=== PATIENT | female | born 1950 | race Caucasian/White ===

== ENCOUNTER 2024-07-22 23:05 | Emergency (ER) | payer OTHER ==
--- NOTE | 2024-07-22 23:40 | EDPHYS ---
Physician Documentation [facility] Name: Juanita Mcallister Age: 74 yrs Sex: Female : 1950 Arrival Date: 07/22/2024 Time: 23:05 Bed IW1 Private MD: ED Physician Lito Dave HPI: 07/23 00:12 This 74 yrs old Female presents to ER via Ambulatory with complaints of Dizziness, Sore rt Throat, Difficulty Swallowing, High Blood Pressure. 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 Patient rt states that she had an acute episode of difficulty swallowing, difficulty breathing. States that this resolved spontaneously upon her arrival to the emergency department, ports a mild sore throat currently which she has had since having an endoscopy. She states that she feels better now, does not wish to have further diagnostic studies be performed in the emergency department. Symptoms are moderate in severity, no other aggravating alleviating factors.. Historical: - Allergies: 07/22 23:57 No Known Allergies; ha1 - Immunization history:: Adult Immunizations unknown. - Infectious Disease History:: Denies. - Social history:: Smoking status: unknown. - Family history:: not pertinent. ROS: 07/23 00:12 Constitutional: Negative for fever, chills, and weight loss, Cardiovascular: Negative rt for chest pain, palpitations, and edema, Abdomen/GI: Negative for abdominal pain, nausea, vomiting, diarrhea, and constipation, MS/Extremity: Negative for injury and deformity, Skin: Negative for injury, rash, and discoloration, ENT: Positive for Difficulty swallowing, sore throat, Respiratory: Positive for shortness of breath, Negative for cough, Exam: 00:12 Constitutional: This is a well developed, well nourished patient who is awake, alert, rt and in no acute distress. Head/Face: Normocephalic, atraumatic. Chest/axilla: Normal chest wall appearance and motion. Nontender with no deformity. No lesions are appreciated. Cardiovascular: Regular rate and rhythm with a normal S1 and S2. No gallops, murmurs, or rubs. Normal PMI, no JVD. No pulse deficits. Respiratory: Lungs have equal breath sounds bilaterally, clear to auscultation and percussion. No rales, rhonchi or wheezes noted. No increased work of breathing, no retractions or nasal flaring. Abdomen/GI: Soft, non-tender, with normal bowel sounds. No distension or tympany. No guarding or rebound. No evidence of tenderness throughout. Skin: Warm, dry with normal turgor. Normal color with no rashes, no lesions, and no evidence of cellulitis. MS/ Extremity: Pulses equal, no cyanosis. Neurovascular intact. Full, normal range of motion. Neuro: Awake and alert, GCS 15, oriented to person, place, time, and situation. Cranial nerves II-XII grossly intact. Motor strength 5/5 in all extremities. Sensory grossly intact. Cerebellar exam normal. Normal gait. 00:12 ENT: Few scattered petechiae on the uvula, no other posterior pharyngeal erythema, no edema. Vital Signs: 07/22 23:49 BP 156 / 84; Pulse 76; Resp 18; Temp 97.9; Pulse Ox 100% ; cg MDM: 23:18 Medical Screening Exam initiated rt 07/23 00:12 Differential diagnosis: Dysphagia, panic attack. Data reviewed: vital signs, nurses rt notes. Test considered but Not performed: Other Details Patient states that she feels much better now, back to baseline, does not wish to have diagnostic studies be performed and wishes to go home, believe this is reasonable at this time, vital signs are stable. Patient understands that she may return a time if she changes her mind or if she develops worsening symptoms. Care significantly affected by the following chronic conditions: Candidal esophagitis. Counseling: I had a detailed discussion with the patient and/or guardian regarding the historical points, exam findings, and any diagnostic results supporting the discharge/admit diagnosis, the presence of at least one elevated blood pressure reading (>120/80) during this emergency department visit, the need for outpatient follow up, to return to the emergency department if symptoms worsen or persist or if there are any questions or concerns that arise at home. Response to treatment: the patient's symptoms have resolved after treatment. Administered Medications: No medications were administered Disposition Summary: 07/22/24 23:39 Discharge Ordered Notes: Location: Home rt Problem: new rt Symptoms: have improved rt Condition: Stable rt Diagnosis - Dysphagia rt Followup: rt - With: Private Physician - When: 2 - 3 days - Reason: Discharge Instructions: - Discharge Summary Sheet rt - Dysphagia rt Forms: - Medication Reconciliation Form rt - Antibiotic Education rt - Prescription Opioid Use rt - Patient Portal Instructions rt - Leadership Thank You Letter rt Signatures: Vira Turner RN RN ha1 Lito Dave MD MD rt
--- NOTE | 2024-07-23 00:02 | ER ---
Nurse's Notes [facility] Name: Juanita Mcallister Age: 74 yrs Sex: Female : 1950 Arrival Date: 07/22/2024 Time: 23:05 Bed IW1 Private MD: Diagnosis: Dysphagia Presentation: 07/22 23:49 Chief complaint: Patient states: C/o of swallowing and breathing.Sore throat. cg Coronavirus screen: Vaccine status:. Ebola Screen: Patient negative for fever greater than or equal to 101.5 degrees Fahrenheit, and additional compatible Ebola Virus Disease symptoms. Initial Sepsis Screen: Does the patient meet any 2 criteria? No. Patient's initial sepsis screen is negative. Risk Assessment: Do you want to hurt yourself or someone else? Patient reports no desire to harm self or others. 23:49 Method Of Arrival: Ambulatory 23:49 Acuity: MAYRA 4 07/23 00:00 Initial Sepsis Screen: Does the patient have a suspected source of infection? No. ha1 Patient's initial sepsis screen is negative. 00:00 Onset of symptoms was July 23, 2024. [facility] Triage Assessment: 07/22 23:57 General: Appears comfortable, Behavior is calm, cooperative. Pain: Complains of pain in [facility] sore throat after endoscopy Pain does not radiate. Pain currently is 4 out of 10 on a pain scale. EENT: Oral mucosa is moist. Good dentition noted. Neuro: Level of Consciousness is awake, alert, obeys commands, Oriented to person, place, time, situation. Cardiovascular: Capillary refill < 3 seconds Patient's skin is warm and dry. Respiratory: Airway is patent Respiratory effort is even, unlabored, Respiratory pattern is regular, symmetrical. Respiratory: GI: Abdomen is round non-distended. : No signs and/or symptoms were reported regarding the genitourinary system. Musculoskeletal: Circulation, motion, and sensation intact. Range of motion: intact in all extremities. Historical: - Allergies: 23:57 No Known Allergies; ha1 - Immunization history:: Adult Immunizations unknown. - Infectious Disease History:: Denies. - Social history:: Smoking status: unknown. - Family history:: not pertinent. Screenin:59 [facility] ED Fall Risk Assessment (Adult) History of falling in the last 3 months, ha1 including since admission No falls in past 3 months (0 pts) Confusion or Disorientation No (0 pts) Intoxicated or Sedated No (0 pts) Impaired Gait No (0 pts) Mobility Assist Device Used No (0 pt) Altered Elimination No (0 pt) Score/Fall Risk Level 0 - 2 = Low Risk Oriented to surroundings, Maintained a safe environment, Educated pt \\T\\ family on fall prevention, incl call for assistance when getting out of bed. Abuse screen: Denies threats or abuse. Denies injuries from another. Nutritional screening: No deficits noted. Tuberculosis screening: No symptoms or risk factors identified. Assessment: 23:50 Reassessment: Patient and/or family updated on plan of care and expected duration. Pain ha1 level reassessed. Patient is alert, oriented x 3, equal unlabored respirations, skin warm/dry/pink. patient states "I am just a little anxious, I had an endoscopy and my throat is sore". Vital Signs: 23:49 BP 156 / 84; Pulse 76; Resp 18; Temp 97.9; Pulse Ox 100% ; cg ED Course: 23:08 Patient arrived in ED. gm2 23:15 Lito Dave MD is Attending Physician. rt 23:50 Patient has correct armband on for positive identification. ha1 23:50 Provided Education on: follow ups. ha1 23:51 Triage completed. cg 23:59 Arm band placed on right wrist. ha1 07/23 00:00 No provider procedures requiring assistance completed. Patient did not have IV access ha1 during this emergency room visit. Administered Medications: No medications were administered Medication: 00:00 VIS not applicable for this client. ha1 Outcome: 07/22 23:39 Discharge ordered by . rt 07/23 00:01 Discharged to home ambulatory, with family, ha1 Condition: stable Discharge instructions given to patient, Instructed on discharge instructions, follow up and referral plans. Demonstrated understanding of instructions, follow-up care, 00:01 Patient left the ED. ha1 Signatures: Sofia Edgar RN RN Vira Turner RN RN 1 Lito Dave MD MD rt Daphney Pinto gm2 Corrections: (The following items were deleted from the chart) 05:10 07/22 23:49 Chief complaint: Patient states: C/o of swallowing and breathing. cg ha1 07/23 05:10 07/22 23:35 Chief complaint: Patient states: verena th ha1 ha1
[2024-07-24 09:56] VITALS: BP 156/84; TEMP 97.9; O2SAT 100
== END 2024-07-23 00:01 | disposition home or self-care (01) ==
LOC: ER 23:05
DX: R13.10 Dysphagia, unspecified (principal); R07.0 Pain in throat; R06.02 Shortness of breath
CPT/HCPCS: 99282